=== PATIENT | male | born 1980 | race Caucasian/White ===

== ENCOUNTER 2021-02-20 04:59 | Emergency (ER) | payer OTHER ==
[~2021-02-20] VITALS: Ht 172.7 cm; Wt 61.2 kg
[2021-02-20 05:12] VITALS: BP 178/90
[2021-02-20] MEDS ORDERED: CEPH500C2 PO (05:45)
[2021-02-20] MEDS ORDERED: DIPH25CA83 PO (05:45)
[2021-02-20] MEDS ORDERED: diphenhydrAMINE HCL 25 MG CAPSULE ONE (05:50)
[2021-02-20] MEDS ORDERED: CEPHALEXIN MONOHYDRATE 500 MG CAPSULE PO ONE ×2 (05:51→06:00)
[2021-02-20] MEDS ORDERED: predniSONE 20 MG TABLET ONE ×2 (05:52)
[2021-02-20] MEDS ORDERED: diphenhydrAMINE HCL 25 MG CAPSULE PO ONE (06:00)
[2021-02-20] MEDS ORDERED: predniSONE 50 MG TABLET PO ONE (06:00)
--- NOTE | 2021-02-20 06:09 | NUR ---
Patient discharged to home in stable condition. Written and verbal after care instructions given. Patient verbalizes understanding of instruction.
== END 2021-02-20 06:10 | disposition home or self-care (01) ==
LOC: ER 05:18
DX: S00.81XA Abrasion of other part of head, initial encounter (principal); L03.211 Cellulitis of face; F10.10 Alcohol abuse, uncomplicated; Z72.0 Tobacco use; Z60.2 Problems related to living alone; X58.XXXA Exposure to other specified factors, initial encounter; Y93.89 Activity, other specified; Y92.89 Other specified places as the place of occurrence of the external cause; Y99.8 Other external cause status
CPT/HCPCS: 99284; J7512 ×2; Q0163

== ENCOUNTER 2021-03-24 20:30 | Emergency (ER) | payer OTHER ==
[~2021-03-24] VITALS: Ht 172.7 cm; Wt 61.7 kg
[~2021-03-24 20:30] MED LIST: CEPH500C2 PO; DIPH25CA83 PO
[2021-03-24 20:48] VITALS: BP 152/73
[2021-03-24] MEDS ORDERED: MUPI22OI7 TP (21:07)
[2021-03-24] MEDS ORDERED: CEPH500C2 PO (21:07)
== END 2021-03-24 21:46 | disposition home or self-care (01) ==
LOC: ER 20:31
DX: L03.211 Cellulitis of face (principal); L03.113 Cellulitis of right upper limb; F17.200 Nicotine dependence, unspecified, uncomplicated; Z60.2 Problems related to living alone